=== PATIENT | female | born 1970 | race Hispanic/Latino ===

== ENCOUNTER 2017-12-06 16:55 | Emergency (ER) | payer MEDICAID ==
[2017-12-06] MEDS ORDERED: HYDROXYZINE HCL 25 MG TABLET ONE (17:09)
[2017-12-06 17:24] LABS: BASOPHILS % (AUTO) 2.1 % (0.0-5.0); EOSINOPHILS % (AUTO) 0.3 % (0.0-8.0); HEMATOCRIT 39.3 % (36-48); LYMPHOCYTES % (AUTO) 20.8 % (21.0-51.0); MEAN CORPUSCULAR HEMOGLOBIN 32.3 pg (27.0-33.0); MEAN CORPUSCULAR HGB CONC 34.4 g/dL (32.0-36.0); MONOCYTES % (AUTO) 7.7 % (3.0-13.0); NEUTROPHILS % (AUTO) 69.1 % (40.0-77.0); NUCLEATED RED BLOOD CELLS 0.1 % (0.0-0.19); PLATELET COUNT (AUTO) 181 K/uL (130-400); RED BLOOD CELL COUNT(AUTO) 4.18 MIL/uL (4.00-5.50); RED CELL DISTRIBUTION WIDTH 13.6 % (11.0-15.5); WHITE BLOOD COUNT (AUTO) 6.8 K/uL (4.8-10.8)
[2017-12-06 17:39] LABS: CREATININE 0.8 mg/dL (0.5-1.5); POTASSIUM 4.3 mmol/L (3.5-5.1)
[2017-12-06 17:43] LABS: ALBUMIN 2.7 g/dL (3.5-5.0); BILIRUBIN,TOTAL 0.4 mg/dL (0.2-1.0); TOTAL PROTEIN, SERUM 6.7 g/dL (6.0-8.3)
[2017-12-06 17:54] LABS: APPEARANCE,URINE CLEAR (CLEAR); BILIRUBIN,URINE NEGATIVE (NEGATIVE); COLOR,URINE YELLOW (YELLOW); GLUCOSE, URINE (UA) NEGATIVE (NEGATIVE); KETONES,URINE NEGATIVE (NEGATIVE); LEUKOCYTE ESTERASE ,URINE NEGATIVE (NEGATIVE); NITRATE,URINE NEGATIVE (NEGATIVE); OCCULT BLOOD,URINE NEGATIVE (NEGATIVE); PROTEIN,URINE 30 (NEGATIVE)
[2017-12-06 18:01] LABS: AMPHET/METH SCREEN,URINE NEGATIVE (NEGATIVE); BARBITURATE SCREEN, URINE NEGATIVE (NEGATIVE); BENZODIAZEPINES SCREEN,URINE NEGATIVE (NEGATIVE); CANNABINOID SCREEN,URINE NEGATIVE (NEGATIVE); COCAINE SCREEN,URINE NEGATIVE (NEGATIVE); OPIATE SCREEN,URINE NEGATIVE (NEGATIVE); PHENCYCLIDINE SCREEN,URINE NEGATIVE (NEGATIVE)
[2017-12-06 18:06] LABS: HCG,QUAL RESULT NEGATIVE (NEGATIVE)
[2017-12-06 18:22] LABS: BACTERIA,URINE Rare /HPF (None Seen); MUCUS,URINE Few LPF (None Seen); RBC,URINE 0-1 /HPF (0-1); SQUAMOUS EPITHELIAL CELL,UR Few /HPF (0-2); WBC,URINE 0-1 /HPF (0-1)
[2017-12-06 18:24] LABS: HYALINE CASTS, URINE 0-1 /LPF (0-1 /LPF)
== END 2017-12-06 19:05 | disposition home or self-care (01) ==
LOC: EDH 16:55
DX: F41.1 Generalized anxiety disorder (principal); L29.9 Pruritus, unspecified; R51 Headache; R10.9 Unspecified abdominal pain; E11.22 Type 2 diabetes mellitus with diabetic chronic kidney disease; N18.6 End stage renal disease; K74.60 Unspecified cirrhosis of liver; Z72.0 Tobacco use
CPT/HCPCS: 36415; 80053; 80305; 81001; 81025; 83690; 85025

== ENCOUNTER 2018-07-08 19:17 | Emergency (ER) | payer MEDICAID ==
[~2018-07-08 19:17] MED LIST: BUPR150T8 PO; DOXY-252 PO; DULO30CA51 PO; ESOM40CA PO; HYDR-3421 PO; IPRA3AMP24 IH; LACT10SO9 PO; LEVO125 PO; LEVO500T2 PO; MECL-111 PO; PREG100C PO
[2018-07-08] MEDS ORDERED: KETOROLAC TROMETHAMINE 30MG/ML ONE (22:12)
[2018-07-08] MEDS ORDERED: ONDANSETRON ODT 4 MG TAB ONE (22:16)
== END 2018-07-08 22:59 | disposition home or self-care (01) ==
LOC: EDH 19:17
DX: H10.9 Unspecified conjunctivitis (principal); L03.213 Periorbital cellulitis; M54.9 Dorsalgia, unspecified; J44.9 Chronic obstructive pulmonary disease, unspecified; E11.22 Type 2 diabetes mellitus with diabetic chronic kidney disease; N18.6 End stage renal disease; E07.9 Disorder of thyroid, unspecified; K74.60 Unspecified cirrhosis of liver; Z72.0 Tobacco use; W18.39XA Other fall on same level, initial encounter; Y93.89 Activity, other specified; Y92.89 Other specified places as the place of occurrence of the external cause; Y99.8 Other external cause status
CPT/HCPCS: 72100; 96372; 99284; J1885

== ENCOUNTER 2018-07-30 19:36 | Emergency (ER) | payer MEDICAID ==
[2018-07-30] MEDS ORDERED: DiphenhydrAMINE HCL 50 MG/ML VIAL ONE (20:46)
[2018-07-30] MEDS ORDERED: KETOROLAC TROMETHAMINE 30MG/ML ONE (20:46)
[2018-07-30] MEDS ORDERED: METOCLOPRAMIDE 10 MG/2 ML VIAL ONE (20:46)
[2018-07-30] MEDS ORDERED: SODIUM CHLORIDE 0.9% 1000ML 1,000 ML IV ONE (20:46)
[2018-07-30 21:10] LABS: BASOPHILS % (AUTO) 0.1 % (0.0-5.0); EOSINOPHILS % (AUTO) 2.9 % (0.0-8.0); HEMATOCRIT 36.5 % (36-48); LYMPHOCYTES % (AUTO) 35.9 % (21.0-51.0); MEAN CORPUSCULAR HEMOGLOBIN 31.5 pg (27.0-33.0); MEAN CORPUSCULAR HGB CONC 34.5 g/dL (32.0-36.0); MEAN CORPUSCULAR VOLUME 91.3 fL (79-99); MONOCYTES % (AUTO) 7.8 % (3.0-13.0); NEUTROPHILS % (AUTO) 53.3 % (40.0-77.0); PLATELET COUNT (AUTO) 252 K/uL (130-400); RED CELL DISTRIBUTION WIDTH 13.1 % (11.0-15.5); WHITE BLOOD COUNT (AUTO) 5.8 K/uL (4.8-10.8)
[2018-07-30 21:19] LABS: POTASSIUM 3.7 mmol/L (3.5-5.1)
[2018-07-30 21:24] LABS: ALBUMIN 3.1 g/dL (3.5-5.0); BILIRUBIN,TOTAL 0.4 mg/dL (0.2-1.0); TOTAL PROTEIN, SERUM 7.3 g/dL (6.0-8.3)
== END 2018-07-30 21:47 | disposition home or self-care (01) ==
LOC: EDH 19:36
DX: M62.830 Muscle spasm of back (principal); M54.5 Low back pain; J44.9 Chronic obstructive pulmonary disease, unspecified; K74.60 Unspecified cirrhosis of liver; F31.9 Bipolar disorder, unspecified; E11.22 Type 2 diabetes mellitus with diabetic chronic kidney disease; N18.6 End stage renal disease; E07.9 Disorder of thyroid, unspecified; Z88.5 Allergy status to narcotic agent; Z72.0 Tobacco use
CPT/HCPCS: 36415; 80053; 85025; 96361; 96374; 96375; 99284; J1200; J1885; J2765; J7030

== ENCOUNTER 2019-04-03 15:08 | Emergency (ER) | payer MEDICAID ==
[~2019-04-03 15:08] MED LIST changes: -DULO30CA51 PO; +DULO30CA52 PO
[2019-04-03] MEDS ORDERED: IBUPROFEN 600 MG TABLET ONE (16:40)
== END 2019-04-03 17:08 | disposition home or self-care (01) ==
LOC: EDH 15:08
DX: S53.491A Other sprain of right elbow, initial encounter (principal); E11.22 Type 2 diabetes mellitus with diabetic chronic kidney disease; N18.6 End stage renal disease; M19.90 Unspecified osteoarthritis, unspecified site; F31.9 Bipolar disorder, unspecified; J44.9 Chronic obstructive pulmonary disease, unspecified; F20.9 Schizophrenia, unspecified; E07.9 Disorder of thyroid, unspecified; Z72.0 Tobacco use; Z88.5 Allergy status to narcotic agent; W18.39XA Other fall on same level, initial encounter; Y93.01 Activity, walking, marching and hiking; Y92.89 Other specified places as the place of occurrence of the external cause; Y99.8 Other external cause status
CPT/HCPCS: 73080

== ENCOUNTER 2019-10-27 13:06 | Emergency (ER) | payer MEDICAID ==
[~2019-10-27 13:06] MED LIST changes: -MECL-111 PO; +MECL-160 PO
[2019-10-27 13:39] LABS: BASOPHILS % (AUTO) 0.4 % (0.0-5.0); EOSINOPHILS % (AUTO) 2.8 % (0.0-8.0); HEMATOCRIT 39.1 % (36-48); LYMPHOCYTES % (AUTO) 28.5 % (21.0-51.0); MEAN CORPUSCULAR HEMOGLOBIN 30.2 pg (27.0-33.0); MEAN CORPUSCULAR HGB CONC 33.2 g/dL (32.0-36.0); MEAN CORPUSCULAR VOLUME 90.9 fL (79-99); MONOCYTES % (AUTO) 8.2 % (3.0-13.0); NEUTROPHILS % (AUTO) 59.8 % (40.0-77.0); PLATELET COUNT (AUTO) 221 K/uL (130-400); RED CELL DISTRIBUTION WIDTH 12.7 % (11.0-15.5); WHITE BLOOD COUNT (AUTO) 6.9 K/uL (4.8-10.8)
[2019-10-27 13:46] LABS: CREATININE 0.8 mg/dL (0.5-1.5); POTASSIUM 3.8 mmol/L (3.5-5.1)
[2019-10-27] MEDS ORDERED: LORAZEPAM 2 MG/ML 1 ML VIAL ONE (13:49)
== END 2019-10-27 15:50 | disposition home or self-care (01) ==
LOC: EDH 13:06
DX: F41.1 Generalized anxiety disorder (principal); R07.89 Other chest pain; F31.9 Bipolar disorder, unspecified; J44.9 Chronic obstructive pulmonary disease, unspecified; E11.22 Type 2 diabetes mellitus with diabetic chronic kidney disease; N18.6 End stage renal disease; F20.9 Schizophrenia, unspecified; E07.9 Disorder of thyroid, unspecified; K74.60 Unspecified cirrhosis of liver; Z88.5 Allergy status to narcotic agent; Z72.0 Tobacco use
CPT/HCPCS: 36415; 71045; 80048; 84484; 85025; 93005; 96372; 99285; J2060

== ENCOUNTER 2020-03-23 13:58 | Emergency (ER) | payer MEDICAID ==
[2020-03-23] MEDS ORDERED: ONDANSETRON HCL 4 MG/2 ML VIAL ONE (14:53)
[2020-03-23] MEDS ORDERED: FAMOTIDINE/PF 20 MG/2 ML VIAL IV ONE (15:28)
[2020-03-23] MEDS ORDERED: KETOROLAC TROMETHAMINE 15MG/ML ONE (17:39)
== END 2020-03-23 18:05 | disposition home or self-care (01) ==
LOC: EDH 13:58
DX: R07.89 Other chest pain (principal); R11.2 Nausea with vomiting, unspecified; N39.0 Urinary tract infection, site not specified; R10.30 Lower abdominal pain, unspecified; M19.90 Unspecified osteoarthritis, unspecified site; F31.9 Bipolar disorder, unspecified; J44.9 Chronic obstructive pulmonary disease, unspecified; E11.9 Type 2 diabetes mellitus without complications; E11.22 Type 2 diabetes mellitus with diabetic chronic kidney disease; N18.6 End stage renal disease; Z72.0 Tobacco use
CPT/HCPCS: 36415; 71045; 80053; 81001; 81025; 82550; 83690; 84484 ×2; 85025; 85610; 85730; 87088; 93005 ×2; 96374; 96375; 99285; J1885; J2405; J3490

== ENCOUNTER 2021-09-09 23:09 | Emergency (ER) | payer MEDICAID ==
[~2021-09-09] VITALS: Ht 154.9 cm; Wt 71.2 kg
[2021-09-09] MEDS ORDERED: 0.9%NACL 1000ML 1,000 ML IV ONE (23:30)
[2021-09-09] MEDS ORDERED: ONDANSETRON 4MG INJ IVP ONE (23:30)
[2021-09-09 23:39] LABS: BASOPHILS % (AUTO) 0.2 % (0.0-5.0); EOSINOPHILS % (AUTO) 0.9 % (0.0-8.0); HEMATOCRIT 41.6 % (36-48); LYMPHOCYTES % (AUTO) 16.8 % (21.0-51.0); MEAN CORPUSCULAR HEMOGLOBIN 31.6 pg (27.0-33.0); MEAN CORPUSCULAR HGB CONC 34.1 g/dL (32.0-36.0); MEAN CORPUSCULAR VOLUME 92.4 fL (79-99); MONOCYTES % (AUTO) 7.8 % (3.0-13.0); NEUTROPHILS % (AUTO) 73.8 % (40.0-77.0); PLATELET COUNT (AUTO) 305 K/uL (130-400); RED CELL DISTRIBUTION WIDTH 13.2 % (11.0-15.5); WHITE BLOOD COUNT (AUTO) 13.2 K/uL (4.8-10.8)
[2021-09-09 23:46] LABS: BILIRUBIN,URINE Negative (NEGATIVE); COLOR,URINE Dark Yellow (YELLOW); GLUCOSE, URINE (UA) Negative (NEGATIVE); KETONES,URINE 40 mg/dL (NEGATIVE); LEUKOCYTE ESTERASE ,URINE Large (NEGATIVE); NITRATE,URINE Negative (NEGATIVE); OCCULT BLOOD,URINE Negative (NEGATIVE); PROTEIN,URINE POS 2+ mg/dL (NEGATIVE)
[2021-09-09 23:47] LABS: APPEARANCE,URINE CLOUDY (CLEAR)
[2021-09-09 23:48] LABS: CARBON DIOXIDE 27 mmol/L (21-32); CHLORIDE 99 mmol/L (101-111); CREATININE 1.2 mg/dL (0.5-1.5); GLOMERULAR FILTR. RATE CALC 51 mL/min (>60); GLUCOSE,RANDOM 99 mg/dL (70-105); POTASSIUM 3.6 mmol/L (3.5-5.1); SODIUM SERUM 136 mmol/L (136-145); UREA NITROGEN, BLOOD 13 mg/dL (7-18)
[2021-09-09 23:52] LABS: ALANINE AMINOTRANSFERASE 29 U/L (12-78); ALCOHOL, BLOOD 4 mg/dL (0-10); ASPARTATE AMINOTRANSFERASE 26 U/L (10-37); BILIRUBIN,TOTAL 1.1 mg/dL (0.2-1.0); TOTAL PROTEIN, SERUM 9.1 g/dL (6.0-8.3)
[2021-09-09 23:53] LABS: AMPHET/METH SCREEN,URINE NEGATIVE (NEGATIVE); BARBITURATE SCREEN, URINE NEGATIVE (NEGATIVE); BENZODIAZEPINES SCREEN,URINE NEGATIVE (NEGATIVE); CANNABINOID SCREEN,URINE NEGATIVE (NEGATIVE); COCAINE SCREEN,URINE POSITIVE (NEGATIVE); OPIATE SCREEN,URINE NEGATIVE (NEGATIVE); PHENCYCLIDINE SCREEN,URINE NEGATIVE (NEGATIVE)
[2021-09-09 23:57] LABS: BACTERIA,URINE Few /HPF (None Seen); RBC,URINE 0-1 /HPF (0-1); WBC,URINE 26-50 /HPF (0-1)
[2021-09-10] MEDS ORDERED: CEFTRIAXONE 1G VIAL IVP ONE
[2021-09-10 00:04] LABS: LIPASE < 50 U/L (114-286)
[2021-09-10 00:35] VITALS: BP 132/74
[2021-09-10] MEDS ORDERED: HYDR25CA PO (01:12)
[2021-09-10] MEDS ORDERED: CEPH500B PO (01:12)
[2021-09-10] MEDS ORDERED: LORAZEPAM 2 MG/ML 1 ML VIAL ONE (01:20)
[2021-09-10] MEDS ORDERED: LORAZEPAM 2 MG/ML 1 ML VIAL IVP ONE (01:30)
== END 2021-09-10 01:29 | disposition home or self-care (01) ==
LOC: EDH 23:09
DX: N39.0 Urinary tract infection, site not specified (principal); F41.9 Anxiety disorder, unspecified; F14.10 Cocaine abuse, uncomplicated; F10.10 Alcohol abuse, uncomplicated; Z20.822 Contact with and (suspected) exposure to COVID-19; I10 Essential (primary) hypertension; J44.9 Chronic obstructive pulmonary disease, unspecified; Z79.899 Other long term (current) drug therapy
CPT/HCPCS: 36415; 80053; 80305; 81001; 83690; 83735; 84484; 85025; 87077; 87088; 87186; 96361; 96374; 96375; 99284; J0696; J2060; J2405; J7030

== ENCOUNTER 2022-03-12 11:56 | Emergency (ER) | payer MEDICAID ==
[~2022-03-12] VITALS: Ht 154.9 cm; Wt 74.8 kg
[~2022-03-12 11:56] MED LIST changes: +BUPR-113 PO; -BUPR150T8 PO; +CEPH500B PO; +HYDR25CA PO
[2022-03-12 12:20] LABS: BASOPHILS % (AUTO) 0.2 % (0.0-5.0); EOSINOPHILS % (AUTO) 0.6 % (0.0-8.0); HEMATOCRIT 39.3 % (36-48); LYMPHOCYTES % (AUTO) 9.7 % (21.0-51.0); MEAN CORPUSCULAR HEMOGLOBIN 31.3 pg (27.0-33.0); MEAN CORPUSCULAR HGB CONC 33.6 g/dL (32.0-36.0); MEAN CORPUSCULAR VOLUME 93.1 fL (79-99); MONOCYTES % (AUTO) 6.8 % (3.0-13.0); NEUTROPHILS % (AUTO) 82.2 % (40.0-77.0); PLATELET COUNT (AUTO) 178 K/uL (130-400); RED BLOOD CELL COUNT(AUTO) 4.22 MIL/uL (4.00-5.50); RED CELL DISTRIBUTION WIDTH 13.2 % (11.0-15.5); WHITE BLOOD COUNT (AUTO) 12.7 K/uL (4.8-10.8)
[2022-03-12] MEDS ORDERED: BUDESONIDE 0.25 MG/2 ML INH IH ONE (12:29)
[2022-03-12] MEDS ORDERED: CEFTRIAXONE 1G VIAL IVP ONE (12:30)
[2022-03-12] MEDS ORDERED: ALBUTEROL 0.083% 2.5 MG/3 ML INH IH ONE ×2 (12:30)
[2022-03-12] MEDS ORDERED: IPRATROPIUM/ALBUTEROL SULFATE 3 ML SOLUTION IH ONE (12:30)
[2022-03-12] MEDS ORDERED: PROMETHAZINE HCL 25 MG/ML 1ML AMPULE IM ONE (12:30)
[2022-03-12] MEDS ORDERED: 0.9%NACL 1000ML 1,000 ML IV SCH (12:30)
[2022-03-12] MEDS ORDERED: SOLU-MEDROL 125MG VIAL IVP ONE (12:30)
[2022-03-12] MEDS ORDERED: ACETAMINOPHEN WITH CODEINE 1 TAB TAB PO ONE (12:30)
[2022-03-12] MEDS ORDERED: AZITHROMYCIN 250 MG TABLET PO ONE (12:30)
[2022-03-12 12:33] LABS: INR 0.95 (0.85-1.15); PROTHROMBIN TIME 10.4 SEC (9.6-11.6)
[2022-03-12 12:34] LABS: CREATININE 0.9 mg/dL (0.5-1.5); PARTIAL THROMBOPLASTIN TIME 24.9 SEC (26.3-35.5)
[2022-03-12 12:40] LABS: ALBUMIN 3.1 g/dL (3.5-5.0); BILIRUBIN,TOTAL 0.5 mg/dL (0.2-1.0); TOTAL PROTEIN, SERUM 7.8 g/dL (6.0-8.3)
[2022-03-12] MEDS ORDERED: AMOX1TAB16 PO (13:50)
[2022-03-12] MEDS ORDERED: PRED20TA3 PO (13:50)
[2022-03-12] MEDS ORDERED: D-ME1POW16 PO (13:50)
[2022-03-12 14:06] VITALS: BP 104/60
[2022-03-12 14:06] LABS: APPEARANCE,URINE CLEAR (CLEAR); BILIRUBIN,URINE NEGATIVE (NEGATIVE); COLOR,URINE YELLOW (YELLOW); GLUCOSE, URINE (UA) NEGATIVE (NEGATIVE); KETONES,URINE NEGATIVE (NEGATIVE); LEUKOCYTE ESTERASE ,URINE NEGATIVE (NEGATIVE); NITRATE,URINE NEGATIVE (NEGATIVE); OCCULT BLOOD,URINE NEGATIVE (NEGATIVE); PH,URINE 7.5 (5.0-8.0); PROTEIN,URINE NEGATIVE (NEGATIVE)
[2022-03-12] MEDS ORDERED: BUDESONIDE 0.5 MG/2 ML INH IH SCH (18:00)
== END 2022-03-12 15:29 | disposition home or self-care (01) ==
LOC: EDH 11:56
DX: J40 Bronchitis, not specified as acute or chronic (principal); E86.0 Dehydration; R50.9 Fever, unspecified; I10 Essential (primary) hypertension; F17.200 Nicotine dependence, unspecified, uncomplicated; Z20.822 Contact with and (suspected) exposure to COVID-19; F41.9 Anxiety disorder, unspecified; M19.90 Unspecified osteoarthritis, unspecified site; K21.9 Gastro-esophageal reflux disease without esophagitis; E05.90 Thyrotoxicosis, unspecified without thyrotoxic crisis or storm; Z79.899 Other long term (current) drug therapy
CPT/HCPCS: 36415; 71045; 80053; 81003; 82550; 83605; 84484; 85025; 85610; 85730; 86140; 87040 ×2; 87088; 87635; 87804 ×2; 94640; 96361; 96372; 96374; 96375; 99284; C9803; J0696; J2550; J2930; J7030

== ENCOUNTER 2022-06-06 00:56 | Emergency (ER) | payer MEDICAID ==
[~2022-06-06] VITALS: Ht 154.9 cm; Wt 72.6 kg
[~2022-06-06 00:56] MED LIST changes: +AMOX1TAB16 PO; +D-ME1POW16 PO; +PRED20TA3 PO
[2022-06-06] MEDS ORDERED: ACETAMINOPHEN 325 MG TAB ONE (01:39)
[2022-06-06] MEDS ORDERED: ACETAMINOPHEN 325 MG TAB PO ONE (02:00)
[2022-06-06] MEDS ORDERED: IBUP-1493 PO (02:43)
[2022-06-06 03:06] VITALS: BP 132/76
== END 2022-06-06 03:07 | disposition home or self-care (01) ==
LOC: EDH 00:56
DX: M79.672 Pain in left foot (principal); Z79.52 Long term (current) use of systemic steroids; Z79.899 Other long term (current) drug therapy; W20.8XXA Other cause of strike by thrown, projected or falling object, initial encounter; Y93.89 Activity, other specified; Y92.090 Kitchen in other non-institutional residence as the place of occurrence of the external cause; Y99.8 Other external cause status
CPT/HCPCS: 73630

== ENCOUNTER 2022-09-23 23:38 | Emergency (ER) | payer MEDICAID ==
[~2022-09-23 23:38] MED LIST changes: +IBUP-1493 PO
[2022-09-23] MEDS ORDERED: SOLU-MEDROL 125MG VIAL IVP STA (23:48)
[2022-09-23] MEDS ORDERED: ONDANSETRON 4MG INJ ONE (23:56)
[2022-09-24] MEDS ORDERED: IPRATROPIUM/ALBUTEROL SULFATE 3 ML SOLUTION IH ONE
[2022-09-24 00:30] LABS: BASOPHILS % (AUTO) 0.8 % (0.0-5.0); EOSINOPHILS % (AUTO) 2.5 % (0.0-8.0); HEMATOCRIT 39.1 % (36-48); LYMPHOCYTES % (AUTO) 27.9 % (21.0-51.0); MEAN CORPUSCULAR HEMOGLOBIN 31.9 pg (27.0-33.0); MEAN CORPUSCULAR HGB CONC 33.2 g/dL (32.0-36.0); MEAN CORPUSCULAR VOLUME 95.8 fL (79-99); MONOCYTES % (AUTO) 15.5 % (3.0-13.0); NEUTROPHILS % (AUTO) 52.5 % (40.0-77.0); PLATELET COUNT (AUTO) 191 K/uL (130-400); RED BLOOD CELL COUNT(AUTO) 4.08 MIL/uL (4.00-5.50); RED CELL DISTRIBUTION WIDTH 13.2 % (11.0-15.5); WHITE BLOOD COUNT (AUTO) 5.3 K/uL (4.8-10.8)
[2022-09-24 00:36] LABS: CREATININE 0.8 mg/dL (0.5-1.5); POTASSIUM 3.9 mmol/L (3.5-5.1)
[2022-09-24 00:44] LABS: ALBUMIN 3.2 g/dL (3.5-5.0); TOTAL PROTEIN, SERUM 7.7 g/dL (6.0-8.3)
[2022-09-24] MEDS ORDERED: PROCHLORPERAZINE 10MG/2ML INJ IV ONE (01:00)
[2022-09-24] MEDS ORDERED: ALBU90AE2 IH (05:16)
[2022-09-24] MEDS ORDERED: METH4TAB3 PO (05:19)
[2022-09-24 05:23] VITALS: BP 119/63
[2022-09-25] MEDS ORDERED: FAMO20TA8 PO (17:37)
== END 2022-09-24 05:49 | disposition home or self-care (01) ==
LOC: EDH 23:38
DX: J45.909 Unspecified asthma, uncomplicated (principal); G43.909 Migraine, unspecified, not intractable, without status migrainosus; Z79.1 Long term (current) use of non-steroidal anti-inflammatories (NSAID); Z79.899 Other long term (current) drug therapy; Z79.52 Long term (current) use of systemic steroids; Z79.2 Long term (current) use of antibiotics; Z20.822 Contact with and (suspected) exposure to COVID-19
CPT/HCPCS: 99285; 71045; 87635; 84484; 80053; 85025; 87804 ×2; 36415; 93005; 96374; 96375; 94640; C9803; J2930; J2405; J0780

== ENCOUNTER 2023-03-31 20:06 | Emergency (ER) | payer MEDICAID ==
[~2023-03-31 20:06] MED LIST changes: +ALBU90AE2 IH; +FAMO20TA8 PO; +METH4TAB3 PO
[2023-03-31] MEDS ORDERED: ONDANSETRON 4MG INJ IVP ONE (23:00)
[2023-03-31] MEDS ORDERED: MORPHINE 4 MG SYG IVP ONE (23:00)
[2023-03-31] MEDS ORDERED: DiphenhydrAMINE HCL 50 MG/ML VIAL ONE (23:10)
[2023-03-31] MEDS ORDERED: DiphenhydrAMINE HCL 50 MG/ML VIAL IV STA (23:10)
[2023-03-31] MEDS ORDERED: SOLU-MEDROL 125MG VIAL ONE (23:11)
[2023-03-31] MEDS ORDERED: SOLU-MEDROL 125MG VIAL IVP ONE (23:30)
[2023-04-01] MEDS ORDERED: IBUP-2070 PO (01:55)
[2023-04-01 02:14] VITALS: BP 115/68
== END 2023-04-01 02:20 | disposition home or self-care (01) ==
LOC: EDH 20:06
DX: S22.31XA Fracture of one rib, right side, initial encounter for closed fracture (principal); E03.9 Hypothyroidism, unspecified; E11.9 Type 2 diabetes mellitus without complications; E78.00 Pure hypercholesterolemia, unspecified; F20.9 Schizophrenia, unspecified; I10 Essential (primary) hypertension; J44.9 Chronic obstructive pulmonary disease, unspecified; M19.90 Unspecified osteoarthritis, unspecified site; Z79.52 Long term (current) use of systemic steroids; Z79.899 Other long term (current) drug therapy; Z88.5 Allergy status to narcotic agent; W19.XXXA Unspecified fall, initial encounter; Y93.89 Activity, other specified; Y92.89 Other specified places as the place of occurrence of the external cause; Y99.8 Other external cause status
CPT/HCPCS: 99284; 96374; 96375; 71045; 71101; 93005; J1200; J2930; J2405; J2270

== ENCOUNTER 2023-06-06 00:49 | Emergency (ER) | payer MEDICAID ==
[~2023-06-06] VITALS: Ht 154.9 cm; Wt 81.6 kg
[~2023-06-06 00:49] MED LIST changes: +IBUP-2070 PO; -MECL-160 PO; +MECL-302 PO
[2023-06-06 00:56] VITALS: BP 121/67; PULSE 71; RESP 18; O2SAT 98
[2023-06-06] MEDS ORDERED: LIDOCAINE HCL 1% 20 ML VIAL ONE (00:56)
[2023-06-06] MEDS ORDERED: TETANUS/DIPHTHERIA TOXOID [ADULT] 0.5 ML VIAL IM ONE (01:00)
[2023-06-06] MEDS ORDERED: LIDOCAINE HCL 1% 20 ML VIAL INJ SCH (01:00)
[2023-06-06] MEDS ORDERED: IBUP-1493 PO (01:36)
[2023-06-06] MEDS ORDERED: CEPH500B PO (01:36)
== END 2023-06-06 01:50 | disposition home or self-care (01) ==
LOC: EDH 00:49
DX: S71.111A Laceration without foreign body, right thigh, initial encounter (principal)
CPT/HCPCS: 12002; 90471; 90714

== ENCOUNTER 2023-06-26 10:58 | Emergency (ER) | payer MEDICAID ==
[~2023-06-26] VITALS: Ht 154.9 cm; Wt 77.1 kg
[2023-06-26 11:29] VITALS: BP 125/70; PULSE 75; RESP 17; O2SAT 98
[2023-06-26] MEDS ORDERED: ASPIRIN 325MG TAB PO ONE (11:30)
[2023-06-26 11:31] LABS: BASOPHILS # (AUTO) 0.02 K/uL (0.00-0.20); BASOPHILS % (AUTO) 0.3 % (0.0-5.0); EOSINOPHILS # (AUTO) 0.11 K/uL (0.00-0.70); EOSINOPHILS % (AUTO) 1.8 % (0.0-8.0); HEMATOCRIT 39.7 % (36-48); IMMATURE GRANULOCYTE ABSOLUTE 0.05 K/uL (0-1); LYMPHOCYTES # (AUTO) 1.7 K/uL (1.0-4.8); LYMPHOCYTES % (AUTO) 27.7 % (21.0-51.0); MEAN CORPUSCULAR HEMOGLOBIN 31.4 pg (27.0-33.0); MEAN CORPUSCULAR VOLUME 95.2 fL (79-99); MONOCYTES # (AUTO) 0.4 K/uL (0.1-1.0); MONOCYTES % (AUTO) 5.8 % (3.0-13.0); NEUTROPHILS # (AUTO) 3.8 K/uL (1.8-7.7); NEUTROPHILS % (AUTO) 63.6 % (40.0-77.0); PLATELET COUNT (AUTO) 256 K/uL (130-400); RED BLOOD CELL COUNT(AUTO) 4.17 MIL/uL (4.00-5.50); RED CELL DISTRIBUTION WIDTH 13.9 % (11.0-15.5)
[2023-06-26 11:40] LABS: CREATININE 0.8 mg/dL (0.5-1.5); POTASSIUM 3.7 mmol/L (3.5-5.1)
[2023-06-26 11:45] LABS: ALBUMIN 3.3 g/dL (3.5-5.0); BILIRUBIN,TOTAL 0.4 mg/dL (0.2-1.0); TOTAL PROTEIN, SERUM 7.4 g/dL (6.0-8.3)
[2023-06-26 11:45] LABS: APPEARANCE,URINE CLEAR (CLEAR); BILIRUBIN,URINE NEGATIVE (NEGATIVE); COLOR,URINE LIGHT-YELLOW (YELLOW); GLUCOSE, URINE (UA) NEGATIVE (NEGATIVE); KETONES,URINE NEGATIVE (NEGATIVE); LEUKOCYTE ESTERASE ,URINE NEGATIVE Leu/uL (NEGATIVE); NITRATE,URINE NEGATIVE (NEGATIVE); OCCULT BLOOD,URINE NEGATIVE (NEGATIVE); PROTEIN,URINE NEGATIVE (NEGATIVE); UROBILINOGEN,URINE 0.2 mg/dL (0.2-1.0)
[2023-06-26 11:46] LABS: ADD UA MICROSCOPIC NO
[2023-06-26 12:09] LABS: B-TYPE NATRIURETIC PEPTIDE 17 pg/mL (0-100)
== END 2023-06-26 14:42 | disposition home or self-care (01) ==
LOC: EDH 10:58
DX: R07.89 Other chest pain (principal); M19.90 Unspecified osteoarthritis, unspecified site; E78.00 Pure hypercholesterolemia, unspecified; E03.9 Hypothyroidism, unspecified; F20.9 Schizophrenia, unspecified; I10 Essential (primary) hypertension; J44.9 Chronic obstructive pulmonary disease, unspecified; Z79.1 Long term (current) use of non-steroidal anti-inflammatories (NSAID); Z79.52 Long term (current) use of systemic steroids; Z79.899 Other long term (current) drug therapy; Z88.5 Allergy status to narcotic agent
CPT/HCPCS: 36415; 71045; 80053; 81003; 83880; 84484; 85025; 93005

== ENCOUNTER 2023-12-19 11:19 | Emergency (ER) | payer MEDICAID ==
[~2023-12-19] VITALS: Ht 154.9 cm; Wt 81.6 kg
[~2023-12-19 11:19] MED LIST changes: +MECL-160 PO; -MECL-302 PO
[2023-12-19 11:58] LABS: BASOPHILS # (AUTO) 0.02 K/uL (0.00-0.20); BASOPHILS % (AUTO) 0.2 % (0.0-5.0); EOSINOPHILS % (AUTO) 1.1 % (0.0-8.0); IMMATURE GRANULOCYTE ABSOLUTE 0.02 K/uL (0-1); LYMPHOCYTES # (AUTO) 1.2 K/uL (1.0-4.8); MEAN CORPUSCULAR HEMOGLOBIN 30.4 pg (27.0-33.0); MEAN CORPUSCULAR HGB CONC 32.8 g/dL (32.0-36.0); MEAN CORPUSCULAR VOLUME 92.8 fL (79-99); MONOCYTES # (AUTO) 0.5 K/uL (0.1-1.0); MONOCYTES % (AUTO) 5.4 % (3.0-13.0); NEUTROPHILS # (AUTO) 7.2 K/uL (1.8-7.7); NEUTROPHILS % (AUTO) 80.1 % (40.0-77.0); PLATELET COUNT (AUTO) 197 K/uL (130-400); RED BLOOD CELL COUNT(AUTO) 4.31 MIL/uL (4.00-5.50); RED CELL DISTRIBUTION WIDTH 13.8 % (11.0-15.5); WHITE BLOOD COUNT (AUTO) 9.1 K/uL (4.8-10.8)
[2023-12-19 12:09] LABS: CREATININE 0.8 mg/dL (0.5-1.0); POTASSIUM 3.5 mmol/L (3.5-5.1)
[2023-12-19 12:10] LABS: INR <= 0.93 (0.85-1.15); PROTHROMBIN TIME 10.9 SEC (9.6-11.6)
[2023-12-19 12:11] LABS: APPEARANCE,URINE CLEAR (CLEAR); BILIRUBIN,URINE NEGATIVE (NEGATIVE); COLOR,URINE YELLOW (YELLOW); GLUCOSE, URINE (UA) NEGATIVE (NEGATIVE); KETONES,URINE NEGATIVE (NEGATIVE); LEUKOCYTE ESTERASE ,URINE NEGATIVE Leu/uL (NEGATIVE); NITRATE,URINE NEGATIVE (NEGATIVE); OCCULT BLOOD,URINE NEGATIVE (NEGATIVE); PROTEIN,URINE 20 mg/dL (NEGATIVE)
[2023-12-19 12:14] LABS: ALBUMIN 3.1 g/dL (3.5-5.0); BILIRUBIN,TOTAL 0.7 mg/dL (0.2-1.0); MAGNESIUM 1.9 mg/dL (1.80-2.40); TOTAL PROTEIN, SERUM 7.5 g/dL (6.0-8.3)
[2023-12-19 12:15] LABS: ADD UA MICROSCOPIC YES
[2023-12-19 12:15] LABS: SARS-CoV-2, RNA, NAAT NEGATIVE SARS CoV-2 (NEGATIVE)
[2023-12-19 12:17] LABS: MUCUS,URINE RARE LPF (None Seen); RBC,URINE 0-1 /HPF (0-1); SQUAMOUS EPITHELIAL CELL,UR RARE /HPF (0-2)
[2023-12-19 12:19] LABS: INFLUENZA TYPE A Negative For Type A (NEGATIVE); INFLUENZA TYPE B Negative For Type B (NEGATIVE)
[2023-12-19 12:20] LABS: B-TYPE NATRIURETIC PEPTIDE 21 pg/mL (0-100)
[2023-12-19 12:29] LABS: RAPID GROUP A STREP positive (NEGATIVE)
[2023-12-19] MEDS ORDERED: AMOX1TAB16 PO (12:49)
[2023-12-19] MEDS ORDERED: L AC460C PO (12:49)
[2023-12-19] MEDS ORDERED: GUAI600T50 PO (12:49)
[2023-12-19] MEDS ORDERED: BENZ-39 PO (12:49)
[2023-12-19] MEDS: 0.9%NACL 1000ML 1,000 ML IV ONE (13:15)
[2023-12-19] MEDS: CEFTRIAXONE 1G VIAL IVPB ONE (13:15)
[2023-12-19] MEDS: GUAIFENESIN 600 MG TABLET.ER PO ONE (13:15)
[2023-12-19] MEDS: BENZONATATE 100 MG CAPSULE PO PRN (13:15)
[2023-12-19 14:10] VITALS: BP 121/70; PULSE 87; RESP 16; O2SAT 97
== END 2023-12-19 14:12 | disposition home or self-care (01) ==
LOC: EDH 11:19
DX: A49.1 Streptococcal infection, unspecified site (principal); J40 Bronchitis, not specified as acute or chronic; I10 Essential (primary) hypertension; E11.9 Type 2 diabetes mellitus without complications; E78.00 Pure hypercholesterolemia, unspecified; E03.9 Hypothyroidism, unspecified; F41.9 Anxiety disorder, unspecified; M19.90 Unspecified osteoarthritis, unspecified site; Z20.822 Contact with and (suspected) exposure to COVID-19; Z79.899 Other long term (current) drug therapy; Z98.890 Other specified postprocedural states; Z88.6 Allergy status to analgesic agent
CPT/HCPCS: 99285; 96365; 71045; 87635; 87880; 83735; 84484; 80053; 83880; 85025; 85610; 87804 ×2; 81001; 36415; 93005; J7030; J0696

== ENCOUNTER 2024-01-05 09:46 | Emergency (ER) | payer MEDICAID ==
[~2024-01-05] VITALS: Ht 160 cm; Wt 72.6 kg
[~2024-01-05 09:46] MED LIST changes: +BENZ-39 PO; -CEPH500B PO; -D-ME1POW16 PO; -DOXY-252 PO; +GUAI600T50 PO; -IBUP-1493 PO; -IBUP-2070 PO; +L AC460C PO; -LACT10SO9 PO; -LEVO500T2 PO; -MECL-160 PO; +MECL-302 PO; -METH4TAB3 PO; -PRED20TA3 PO
[2024-01-05] MEDS ORDERED: MELO-106 PO (11:49)
[2024-01-05] MEDS ORDERED: CYCL10TA16 PO (11:49)
[2024-01-05] MEDS: FAMOTIDINE 20MG VIAL IV ONE (12:06)
[2024-01-05] MEDS: METOCLOPRAMIDE 10 MG/2 ML VIAL IVP ONE (12:06)
[2024-01-05] MEDS: DIAZEPAM 5 MG/ML 2 ML SYG IVP ONE (12:07)
[2024-01-05] MEDS: KETOROLAC 30MG VIAL (30MG/ML) IVP ONE (12:07)
[2024-01-05 12:45] VITALS: BP 144/73; PULSE 78; RESP 18; O2SAT 98
== END 2024-01-05 13:09 | disposition home or self-care (01) ==
LOC: EDH 09:46
DX: M48.061 Spinal stenosis, lumbar region without neurogenic claudication (principal); I10 Essential (primary) hypertension; F20.9 Schizophrenia, unspecified; J44.9 Chronic obstructive pulmonary disease, unspecified; M19.90 Unspecified osteoarthritis, unspecified site; Z79.899 Other long term (current) drug therapy; Z88.5 Allergy status to narcotic agent; Z98.890 Other specified postprocedural states
CPT/HCPCS: 99284; 96374; 96375; 72100; J3360; J1885; J2765; S0028; J3490

== ENCOUNTER 2024-10-15 16:09 | Emergency (ER) | payer MEDICAID ==
[~2024-10-15] VITALS: Ht 152.4 cm; Wt 74.8 kg
[~2024-10-15 16:09] MED LIST changes: -ALBU90AE2 IH; +ALBU90AE3 IH; +CYCL10TA16 PO; +MELO-106 PO
[2024-10-15] MEDS: LIDOCAINE HCL 1% 20 ML VIAL INJ STA (16:22)
[2024-10-15] MEDS: OCTYL 2-CYANOACRYLATE 1 EACH TP ONE (19:46)
--- NOTE | 2024-10-15 19:57 | ERN ---
ED Note History of Present Illness Stated Complaint: LACERATION Chief Complaint: Laceration/Avulsion Time Seen by MD: 16:15 Time Seen by Midlevel: 16:20 Dictation: 54-year-old female with a history of schizophrenia, bipolar, anxiety coming in complaining of a laceration to her right hand after picking up a metal sheet. Unknown if she is up to date with her tetanus. Allergies: Coded Allergies: morphine (Unverified Allergy, Severe, 04/01/23) No Known Drug Allergies (Verified Allergy, Unknown, 04/24/18) Home Meds Active Scripts Meloxicam (Meloxicam) 7.5 Mg Tablet, 7.5 MG PO DAILY, #30 TAB 2 Refills Prov:JUDI SCHNEIDER Sr., MD 01/05/24 Cyclobenzaprine HCl (Flexeril) 10 Mg Tab, 10 MG PO TIDP PRN for Muscle Spasm , #30 TAB 2 Refills Prov:JUDI SCHNEIDER Sr., MD 01/05/24 l Acidophil/B Lactis/B Longum (Florajen Digest 15 B Cell Cap) 15 Billion Cell Capsule, 1 EACH PO DAILY for 90 Days, #90 CAP 1 Refill Prov:MAGDI UNDERWOOD 12/19/23 Guaifenesin (Mucinex) 600 Mg Tablet.er, 600 MG PO BID PRN for CONGESTION for 7 Days, #14 TAB Prov:MAGDI UNDERWOOD 12/19/23 Benzonatate (Tessalon Perles) 100 Mg Cap, 100 MG PO TID for cough, #30 CAP 0 Refills Prov:MAGDI UNDERWOOD 12/19/23 Amoxicillin/Potassium Clav (Amox Tr-K Clv 875-125 mg Tab) 875 Mg-125 Mg Tablet, 1 EACH PO BID for 10 Days, #10 TAB 0 Refills Prov:MAGDI UNDERWOOD 12/19/23 Famotidine (Famotidine) 20 Mg Tablet, 20 MG PO BID for 7 Days, #1 TAB Prov:ALHAJI PICKENS 09/25/22 Albuterol Sulfate (Proair Digihaler) 90 Mcg Aer.pw.bas, 90 MCG IH Q4HPRN PRN for reactive airway, #1 INHALER Prov:HERIBERTO TOBAR MD 09/24/22 Hydroxyzine Pamoate (Vistaril) 25 Mg Capsule, 25 MG PO TID for anxiety, #30 CAP Prov:JOCELYNE PALOMINO MD 09/10/21 Reported Medications Ipratropium/Albuterol Sulfate (Iprat-Albut 0.5-3(2.5) mg/3 ml) 3 Ml Ampul.neb, 3 ML IH [id number] PRN for SHORTNESS OF BREATH/WHEEZING 04/30/18 Levothyroxine Sodium (Levothroid/Synthroid) 125 Mcg Tab, 137 MCG PO OADDF, TAB 04/25/18 Duloxetine HCl (Duloxetine HCl) 30 Mg Capsule.dr, 30 MG PO BID, CAP 04/25/18 Meclizine HCl (Meclizine HCl) 25 Mg Tablet, 25 MG PO TID PRN for NAUSEA, TAB 04/25/18 Esomeprazole Magnesium (Nexium) 40 Mg Capsule.dr, 40 MG PO DAILY, CAP 04/25/18 Hydroxyzine HCl (Hydroxyzine HCl) 25 Mg Tablet, 25 MG PO [id number] PRN for ANXIETY, TAB 04/25/18 Pregabalin (Lyrica) 100 Mg Capsule, 100 MG PO TID, CAP 04/25/18 Bupropion HCl (Bupropion HCl Sr) 150 Mg Tablet.er, 150 MG PO BID, TAB 04/25/18 Past Medical History Past Medical History: Asthma, Bipolar, COPD, GERD, Hypothyroid, Migraines, Schizophrenia Additional Past Medical Hx: DJD, CHRONIC BACK PAIN, OSTEOPOROSIS Surgical History: None Surgical History Other: ABDOMINAL , SPINE Family History: Negative Social History: Negative Review of System Dictation Constitutional: Negative for fever,chills, and weight loss Eyes: Negative for injury, pain,redness, and discharge ENT: Negative for injury,pain or swelling Cardiovascular: Negative for chest pain, palpitations, and edema Respiratory: Negative for shortness of breath, cough, and wheezing, Abdomen/GI: Negative for abdominal pain, nausea, vomiting, diarrhea, and constipation Back: Negative for injury and pain : Negative for injury, bleeding and discharge MS/Extremity: Negative for injury and deformity laceration to the right hand Skin: Negative for rash, and discoloration Neuro: Negative for headache, weakness, numbness, tingling, and seizure Psych: Negative for suicide ideation, homicidal ideation, and hallucinations Review of Systems: was completed Initial Vital Sign VS Vital Signs Date Time Temp Pulse Resp B/P (MAP) Pulse Ox O2 Delivery O2 Flow Rate FiO2 10/15/24 16:10 98.2 78 18 117/82 96 Room Air 0 Physical Exam Dictation General: awake, alert, NAD Head/Face: Normocephalic, atraumatic Eyes: PERRL, EOMI, vision at baseline ENT: oral cavity clear, TMs clear, no signs of infection Neck: Trachea midline, supple, no nuchal rigidity Cardiovascular: RRR, normal S1/S2, No MRGs, no JVD Respiratory: CTAB, no respiratory distress, No rales or wheezes Abdomen: Soft, non-tender, non-distended, normal bowel sounds, no guarding or rebound. Skin: Warm, dry, normal turgor, no rash about 2 in laceration to the right base of the thumb no active bleeding. MS/Extremity: Pulses equal, no cyanosis, neurovascular intact, FROM Neuro: COAx4, GCS 15, strength 5/5, CN 2-12 intact, normal cerebellar exam, normal gait, Psych: Normal behavior, mood, and affect normal ED Course ED Course Orders Procedure Category Date Status Time Tetanus,Diphtheria PHA 10/15/24 Complete Tox [Adult] (Diphther 16:30 Lidocaine Hcl 1% 20ml PHA 10/15/24 Complete Vial (Lidocaine Hc 16:22 Ketorolac PHA 10/15/24 Complete Tromethamine 15mg/Ml 19:08 Dermabond (Dermabond) PHA 10/15/24 Complete 19:46 Current Medications Medications (Trade) Dose Ordered Sig/Katlin Route PRN Reason Start Time Stop Time Status Last Admin Dose Admin Ketorolac Tromethamine (toRADol) 15 mg ONCE STAT IM 10/15/24 19:08 10/15/24 19:09 DC Lidocaine HCl (Lidocaine HCl 1% 20ml Vial) 10 ml ONCE STAT INJ 10/15/24 16:22 10/15/24 16:24 DC Octyl Cyanoacrylate (Dermabond) 1 each STK-MED ONCE TP 10/15/24 19:46 10/15/24 19:47 DC Tetanus/ Diphtheria Toxoids Adsorbed (DiphthERIA-teTANUS TOXOID [ADULT]/ DECAVAC) 0.5 ml ONCE ONCE IM 10/15/24 16:30 10/15/24 16:31 DC Vital Signs Date Time Temp Pulse Resp B/P (MAP) Pulse Ox O2 Delivery O2 Flow Rate FiO2 10/15/24 16:10 98.2 78 18 117/82 96 Room Air 0 Medical Decision Making MDM MDM: 54-year-old female with a history of schizophrenia, bipolar, anxiety coming in complaining of a laceration to her right hand after picking up a metal sheet. Unknown if she is up to date with her tetanus. Patient has full range of motion to all fingers. No tendon involvement. See laceration repair note. Discussed with the patient wound care and when to return back to the ER. Patient verbalized understanding, answered all questions. Differential diagnosis: Tendon involvement, superficial laceration, Rationale: Tests considered and ordered secondary to shared decision making include: Previous outside records reviewed: Old ER visits. Risk of complication and/or morbidity or mortality of patient management: None Medications-Per medication reconciliation Need for hospitalization: Patient does not meet criteria for hospitalization. Need for emergency major/minor surgery: No There are no social concerns with this patient. Prescription drug management Prescriptions will include symptomatic care Patient's prior external medical records from other ER visits were reviewed by me as indicated. Prior testing and results from previous visits were reviewed. Prior tests were taken into account with medical decision making and resource utilization, independent historian/historians were used to obtain complete medical history. I independently interpreted the test that were performed, results were reviewed by me and considered findings on radiology if ordered. Medical management and examination interpretation discussions were had by me with other qualified healthcare professionals as indicated for the patient's care. Procedure Wound Location: upper extremity (Right hand) Wound's Depth, Shape: superficial Wound Explored: clean Wound Debrided: minimal Wound Repaired With: Dermabond DX & DISP Disposition: Discharge Departure Condition: Stable Additional Instructions: Keep area clean with soap and water. Keep area dry. Did not feel off Dermabond it will fall off on its own. Please return if you have any signs of infection. Referrals: SANDRO WOODWARD (PCP) Time of Disposition: 20:10 I have reviewed the case, and I agree with, Diagnosis and Plan MATT WEISS NP Oct 15, 2024 19:57
--- NOTE | 2024-10-15 20:16 | NUR ---
PT NOT DISCHARGED DUE TO MULTIPLE MEDICATIONS PENDING
[2024-10-15 20:17] VITALS: BP 122/63; PULSE 70; RESP 16; TEMP 98.2; O2SAT 99
[2024-10-15] MEDS: ketOROlac 15MG/ML VIAL (15MG/ML) IM STA (20:25)
[2024-10-15] MEDS: teTANUS/diphthERIA TOXOID [ADULT] 0.5 ML VIAL IM ONE (20:31)
== END 2024-10-15 20:45 | disposition home or self-care (01) ==
LOC: EDH 16:09
DX: S61.411A Laceration without foreign body of right hand, initial encounter (principal); E03.9 Hypothyroidism, unspecified; F20.9 Schizophrenia, unspecified; K21.9 Gastro-esophageal reflux disease without esophagitis; J44.9 Chronic obstructive pulmonary disease, unspecified; Z79.1 Long term (current) use of non-steroidal anti-inflammatories (NSAID); Z79.899 Other long term (current) drug therapy; Z88.5 Allergy status to narcotic agent; W26.8XXA Contact with other sharp object(s), not elsewhere classified, initial encounter; Y93.89 Activity, other specified; Y92.89 Other specified places as the place of occurrence of the external cause; Y99.8 Other external cause status
CPT/HCPCS: 99284; 90714; 96372; 90471; 12002; J1885

== ENCOUNTER 2025-08-24 17:32 | Emergency (ER) | payer MEDICAID ==
[~2025-08-24] VITALS: Ht 152.4 cm; Wt 72.1 kg
--- NOTE | 2025-08-24 18:08 | EKG ---
[facility] Test Date: 2025-08-24 Test Time: 18:05:23 Pat Name: ILDA BRIGHT Department: [facility] Room: Gender: F Anvilsmith: [id number] : 1970 Requested By: CARLOS CLINE Order Number: [id number] Reading MD: Cori Miner Measurements Intervals Lyman Rate: 83 P: 69 UT: 149 QRS: 46 QRSD: 71 T: 38 QT: 354 QTc: 417 Interpretive Statements Sinus rhythm Compared to ECG 12/19/2023 11:28:34 No significant changes Electronically Signed On 08-24-2025 21:11:33 STONEWORKER by Cori Miner Please click the below link to view image of tracing.
[2025-08-24] MEDS: 0.9%NACL 1000ML 1,000 ML IV ONE (18:17)
[2025-08-24 18:22] LABS: IMMATURE GRANULOCYTE ABSOLUTE 0.05 K/uL (0-1); NUCLEATED RED BLOOD CELLS 0.0 % (0.0-0.19); PLATELET COUNT (AUTO) 176 K/uL (130-400); RED BLOOD CELL COUNT(AUTO) 4.24 MIL/uL (4.00-5.50); RED CELL DISTRIBUTION WIDTH 13.3 % (11.0-15.5); WHITE BLOOD COUNT (AUTO) 5.0 K/uL (4.8-10.8)
[2025-08-24 18:30] LABS: SARS-CoV-2, RNA, NAAT NEGATIVE SARS CoV-2 (NEGATIVE)
[2025-08-24 18:32] LABS: APPEARANCE,URINE CLEAR (CLEAR); GLUCOSE, URINE (UA) NEGATIVE (NEGATIVE); LEUKOCYTE ESTERASE ,URINE NEGATIVE Leu/uL (NEGATIVE); NITRATE,URINE NEGATIVE (NEGATIVE); OCCULT BLOOD,URINE NEGATIVE (NEGATIVE)
[2025-08-24 18:32] LABS: CREATININE 0.9 mg/dL (0.5-1.0); GLOMERULAR FILTR. RATE CALC 76.0 mL/min (>90); GLUCOSE,RANDOM 94.0 mg/dL (70-105); SODIUM SERUM 138.0 mmol/L (136-145); UREA NITROGEN, BLOOD 15.0 mg/dL (7-18)
[2025-08-24 18:35] LABS: RAPID GROUP A STREP positive (NEGATIVE)
[2025-08-24 18:37] LABS: ASPARTATE AMINOTRANSFERASE 18.0 U/L (10-37); CREATINE KINASE, TOTAL 66.0 U/L (21-232); TOTAL PROTEIN, SERUM 7.3 g/dL (6.0-8.3)
[2025-08-24 18:41] LABS: INFLUENZA TYPE A Negative For Type A (NEGATIVE); INFLUENZA TYPE B Negative For Type B (NEGATIVE)
[2025-08-24 18:41] LABS: ADD UA MICROSCOPIC NO
--- NOTE | 2025-08-24 19:33 | ERN ---
General Chief Complaint: Multiple Complaints Stated Complaint: CHEST PAIN,RT FLANK PAIN,WEAKNESS,NAUSEA,VOMITING Time Seen by MD: 17:35 Time Seen by Midlevel: 17:35 Source: patient History of Present Illness Initial Comments 55-year-old female presents to the emergency department with multiple complaints. She reports nausea, vomiting, generalized body weakness, coughing, and a sore throat. Allergies: Coded Allergies: morphine (Unverified Allergy, Severe, 04/01/23) No Known Drug Allergies (Verified Allergy, Unknown, 04/24/18) Home Meds Active Scripts Meloxicam (Meloxicam) 7.5 Mg Tablet, 7.5 MG PO DAILY, #30 TAB 2 Refills Prov:JUDI SCHNEIDER Sr., MD 01/05/24 Cyclobenzaprine HCl (Flexeril) 10 Mg Tab, 10 MG PO TIDP PRN for Muscle Spasm , #30 TAB 2 Refills Prov:JUDI SCHNEIDER Sr., MD 01/05/24 l Acidophil/B Lactis/B Longum (Florajen Digest 15 B Cell Cap) 15 Billion Cell Capsule, 1 EACH PO DAILY for 90 Days, #90 CAP 1 Refill Prov:MAGDI UNDERWOOD 12/19/23 Guaifenesin (Mucinex) 600 Mg Tablet.er, 600 MG PO BID PRN for CONGESTION for 7 Days, #14 TAB Prov:MAGDI UNDERWOOD 12/19/23 Benzonatate (Tessalon Perles) 100 Mg Cap, 100 MG PO TID for cough, #30 CAP 0 Refills Prov:MAGDI UNDERWOOD 12/19/23 Amoxicillin/Potassium Clav (Amox Tr-K Clv 875-125 mg Tab) 875 Mg-125 Mg Tablet, 1 EACH PO BID for 10 Days, #10 TAB 0 Refills Prov:MAGDI UNDERWOOD 12/19/23 Famotidine (Famotidine) 20 Mg Tablet, 20 MG PO BID for 7 Days, #1 TAB Prov:ALHAJI PICKENS 09/25/22 Albuterol Sulfate (Proair Digihaler) 90 Mcg Aer.pw.bas, 90 MCG IH Q4HPRN PRN for reactive airway, #1 INHALER Prov:HERIBERTO TOBAR MD 09/24/22 Hydroxyzine Pamoate (Vistaril) 25 Mg Capsule, 25 MG PO TID for anxiety, #30 CAP Prov:JOCELYNE PALOMINO MD 09/10/21 Reported Medications Ipratropium/Albuterol Sulfate (Iprat-Albut 0.5-3(2.5) mg/3 ml) 3 Ml Ampul.neb, 3 ML IH [id number] PRN for SHORTNESS OF BREATH/WHEEZING 04/30/18 Levothyroxine Sodium (Levothroid/Synthroid) 125 Mcg Tab, 137 MCG PO OADDF, TAB 04/25/18 Duloxetine HCl (Duloxetine HCl) 30 Mg Capsule.dr, 30 MG PO BID, CAP 04/25/18 Meclizine HCl (Meclizine HCl) 25 Mg Tablet, 25 MG PO TID PRN for NAUSEA, TAB 04/25/18 Esomeprazole Magnesium (Nexium) 40 Mg Capsule.dr, 40 MG PO DAILY, CAP 04/25/18 Hydroxyzine HCl (Hydroxyzine HCl) 25 Mg Tablet, 25 MG PO [id number] PRN for ANXIETY, TAB 04/25/18 Pregabalin (Lyrica) 100 Mg Capsule, 100 MG PO TID, CAP 04/25/18 Bupropion HCl (Bupropion HCl Sr) 150 Mg Tablet.er, 150 MG PO BID, TAB 04/25/18 Past Medical History Past Medical History: Asthma, Bipolar, COPD, GERD, Hypothyroid, Migraines, Schizophrenia Medical History Other: DJD, CHRONIC BACK PAIN, OSTEOPOROSIS Past Surgical History: None Surgical History Other: ABDOMINAL , SPINE Family History Family History: Negative Social History Social History: Negative ROS Dictation CONSTITUTIONAL: Negative except for HPI HEAD/FACE: Negative except for HPI EENT: Negative except for HPI RESPIRATORY: Negative except for HPI GASTROINTESTINAL/ABDOMINAL: Negative except for HPI GENITOURINARY: Negative except for HPI MUSCULOSKELETAL: Negative except for HPI INTEGUMENTARY: Negative except for HPI NEUROLOGICAL/PSYCH: Negative except for HPI HEMATOLOGIC/LYMPHATIC: Negative except for HPI All Systems Negative, Except as noted above. 13 point review of systems assessed and all negative except for above. Physical Exam Physical Exam Dictation Vital Signs reviewed General Appearance: Alert, oriented x 3, no acute distress, well developed, nourished. Head and Face: non-traumatic. Eyes: PERRL, pink conjunctivas, eyelid no trauma, anterior chamber with arcus senilis. Ears: Pinnas intact and no signs of trauma or erythema ear canals clear and no discharge TM no erythema Nose: No discharge, no bleeding. Oropharynx: Mouth normal, tongue pink, pharynx clear,no erythema, tonsils no exudates, no abscesses noted, mucous membrane moist Neck: Supple, non-tender, no thyromegaly, no masses, no JVD, no bruits Breast:Deferred Chest:No tenderness, no crepitus, no paradoxical movement, no retractions Lungs:Clear, well-ventilated, symmetric, no rales, no wheezing, no rhonchi, no stridor, good breath sounds bilaterally Heart: Regular rate, regular rhythm, no murmur, no gallops Vascular: no peripheral edema, Abdomen: Soft, positive bowel sounds, nondistended, no guarding, nontender, no rebound, no masses no hepatomegaly, no splenomegaly, no Jenkins's sign, no hernias. Rectal: Deferred Genital: Deferred Neurological: Normal speech, motor function intact, sensory function intact Musculoskeletal: Neck nontender, full range of motion, back nontender, full range of motion, Extremities: nontender, full range of motion Skin: Color pink, dry, no turgor, no rash, no lacerations, no abrasions, no contusions. Lymphatic: Deferred Results Laboratory and Microbiology Lab and Micro Result Laboratory Tests Test 08/24/25 18:00 08/24/25 18:08 08/24/25 18:10 Influenza Type A Antigen Negative For Type A Influenza Type B Antigen Negative For Type B SARS-CoV-2, RNA, NAAT NEGATIVE SARS CoV-2 Group A Streptococcus Rapid positive (NEGATIVE) *A White Blood Count 5.0 K/uL (4.8-10.8) Red Blood Count 4.24 MIL/uL (4.00-5.50) Hemoglobin 13.7 g/dL (12.0-16.0) Hematocrit 41.4 % (36-48) Mean Corpuscular Volume 97.6 fL (79-99) Mean Corpuscular Hemoglobin 32.3 pg (27.0-33.0) Mean Corpuscular Hemoglobin Concent 33.1 g/dL (32.0-36.0) Red Cell Distribution Width 13.3 % (11.0-15.5) Platelet Count 176 K/uL (130-400) Mean Platelet Volume 10.2 fL (7.5-10.5) Immature Granulocyte % (Auto) 1.0 % (0-1) Neutrophils (%) (Auto) 71.4 % (40.0-77.0) Lymphocytes (%) (Auto) 16.5 % (21.0-51.0) L Monocytes (%) (Auto) 9.5 % (3.0-13.0) Eosinophils (%) (Auto) 1.4 % (0.0-8.0) Basophils (%) (Auto) 0.2 % (0.0-5.0) Neutrophils # (Auto) 3.6 K/uL (1.8-7.7) Lymphocytes # (Auto) 0.8 K/uL (1.0-4.8) L Monocytes # (Auto) 0.5 K/uL (0.1-1.0) Eosinophils # (Auto) 0.07 K/uL (0.00-0.70) Basophils # (Auto) 0.01 K/uL (0.00-0.20) Absolute Immature Granulocyte (auto 0.05 K/uL (0-1) Nucleated Red Blood Cells 0.0 % (0.0-0.19) Sodium Level 138 mmol/L (136-145) Potassium Level 3.4 mmol/L (3.5-5.1) L Chloride Level 100 mmol/L (101-111) L Carbon Dioxide Level 30 mmol/L (21-32) Blood Urea Nitrogen 15 mg/dL (7-18) Creatinine 0.9 mg/dL (0.5-1.0) Glomerular Filtration Rate Calc 76 mL/min (>90) Random Glucose 94 mg/dL (70-105) Total Calcium 8.6 mg/dL (8.5-10.1) Magnesium Level 2.20 mg/dL (1.80-2.40) Total Bilirubin 0.5 mg/dL (0.2-1.0) Aspartate Amino Transf (AST/SGOT) 18 U/L (10-37) Alanine Aminotransferase (ALT/SGPT) 19 U/L (12-78) Alkaline Phosphatase 93 U/L (50-136) Total Creatine Kinase 66 U/L (21-232) Troponin I High Sensitivity 4 ng/L (4-50) Total Protein 7.3 g/dL (6.0-8.3) Albumin 3.3 g/dL (3.5-5.0) L Lipase 30 U/L (16-77) Urine Color YELLOW (YELLOW) Urine Appearance CLEAR (CLEAR) Urine pH 6.0 (5.0-8.0) Urine Specific [place] 1.025 (1.001-1.031) Urine Protein NEGATIVE mg/dL (NEGATIVE) Urine Glucose (UA) NEGATIVE mg/dL (NEGATIVE) Urine Ketones NEGATIVE mg/dL (NEGATIVE) Urine Occult Blood NEGATIVE (NEGATIVE) Urine Nitrate NEGATIVE (NEGATIVE) Urine Bilirubin NEGATIVE mg/dL (NEGATIVE) Urine Urobilinogen 2.0 mg/dL (0.2-1.0) H Urine Leukocyte Esterase NEGATIVE [place]/uL Labs Reviewed?: Yes MDM MDM: Differential diagnosis: Viral syndrome, pneumonia, upper respiratory infection, strep, dehydration There are no social concerns with this patient. Prescription drug management Prescriptions will include: Augmentin Medical management and examination interpretation discussions were had by me with other qualified healthcare professionals as indicated for the patient's care. ED Course Orders Procedure Category Date Status Time 12 Lead Ekg Tracing- EKG 08/24/25 Complete Technical 17:49 B-Type Natriuretic LAB 08/24/25 In Process Peptide 17:49 Cbc With Differential LAB 08/24/25 In Process 17:49 Comprehensive LAB 08/24/25 Complete Metabolic Panel 17:49 Creatine Kinase, Total LAB 08/24/25 Complete 17:49 Influenza Type A & B, LAB 08/24/25 Complete Rapid 17:49 Lipase LAB 08/24/25 Complete 17:49 Magnesium LAB 08/24/25 Complete 17:49 Rapid (Group A Strep) LAB 08/24/25 Complete 17:49 Covid Rna Naat LAB 08/24/25 Complete 17:49 Troponin I High LAB 08/24/25 Complete Sensitivity 17:49 Urinalysis Profile LAB 08/24/25 Complete 17:49 Chest 1vw RAD 08/24/25 Taken 17:49 0.9%Nacl 1000ml (Ns PHA 08/24/25 Complete 1000ml) 18:00 Acetaminophen 500mg PHA 08/24/25 Complete Tab (Tylenol 500mg T 18:00 Ceftriaxone 1g Vial PHA 08/24/25 Complete (Rocephine 1g Inj) 19:00 Ondansetron 4mg Inj PHA 08/24/25 Complete (Zofran 4mg Inj) 19:00 Current Medications Medications (Trade) Dose Ordered Sig/Katlin Route PRN Reason Start Time Stop Time Status Last Admin Dose Admin Acetaminophen (TYLenol 500MG TAB) 1,000 mg ONCE ONCE PO 08/24/25 18:00 08/24/25 18:01 DC 08/24/25 18:16 Ceftriaxone Sodium (ROCEphine 1G INJ) 1 gm ONCE ONCE IVPB 08/24/25 19:00 08/24/25 19:01 DC 08/24/25 19:20 Ondansetron HCl (zoFRAN 4MG INJ) 4 mg ONCE ONCE IVP 08/24/25 19:00 08/24/25 19:01 DC 08/24/25 19:20 Sodium Chloride 1,000 ml @ 0 mls/hr ONCE ONCE IV 08/24/25 18:00 08/24/25 18:01 DC 08/24/25 18:17 Vital Signs Date Time Temp Pulse Resp B/P (MAP) Pulse Ox O2 Delivery O2 Flow Rate FiO2 08/24/25 18:03 99.1 59 20 171/92 99 Room Air* 0 21 08/24/25 17:39 99.1 59 20 171/92 99 Room Air DX & DISP Disposition: Discharge Departure Impression: Primary Impression: Strep pharyngitis Condition: Stable Scripts Ketorolac Tromethamine (Ketorolac Tromethamine) 10 Mg Tablet 1 TAB PO BID for pain for 5 Days, #10 TAB 0 Refills Prov: CARLOS CLINE PAC 08/24/25 Amoxicillin/Potassium Clav (Amox Tr-K Clv 875-125 mg Tab) 875 Mg-125 Mg Tablet 1 EACH PO BID for 7 Days, #14 TAB 0 Refills Prov: CARLOS CLINE PAC 08/24/25 Referrals: SANDRO WOODWARD (PCP) I have reviewed the case, and I agree with, Diagnosis and Plan I performed the substantive portion of the visit. I have reviewed and personally made and approve the management plan that is documented in the note by myself or the VIOLETTE. I acknowledge for responsibility for the patient's management plan. CARLOS CLINE PAC Aug 24, 2025 19:33
[2025-08-24 20:18] VITALS: PULSE 69; RESP 20
[2025-08-24 20:55] VITALS: BP 162/88; PULSE 64; RESP 20; TEMP 99; O2SAT 99
--- NOTE | 2025-08-24 21:02 | HMCIMG ---
EXAM: CR Chest, 1 View. CLINICAL HISTORY: SOB. COMPARISON: None provided. FINDINGS: LUNGS: There is no mass, infiltrate, or acute pulmonary abnormality. PLEURAL SPACES: No evidence of pleural effusion or pneumothorax. MEDIASTINUM: The cardiomediastinal silhouette is within normal limits. BONES: No acute osseous abnormality. IMPRESSION: No acute cardiopulmonary pathology is evident. /[place]
== END 2025-08-24 20:57 | disposition home or self-care (01) ==
LOC: EDH 17:32
DX: J02.0 Streptococcal pharyngitis (principal); R11.2 Nausea with vomiting, unspecified; E03.9 Hypothyroidism, unspecified; F20.9 Schizophrenia, unspecified; F31.9 Bipolar disorder, unspecified; J44.89 Other specified chronic obstructive pulmonary disease; M81.0 Age-related osteoporosis without current pathological fracture; G89.29 Other chronic pain; M19.90 Unspecified osteoarthritis, unspecified site; G43.909 Migraine, unspecified, not intractable, without status migrainosus; K21.9 Gastro-esophageal reflux disease without esophagitis; Z20.822 Contact with and (suspected) exposure to COVID-19; Z88.5 Allergy status to narcotic agent; Z79.899 Other long term (current) drug therapy; Z79.1 Long term (current) use of non-steroidal anti-inflammatories (NSAID)
CPT/HCPCS: 99285; 96374; 71045; 87635; 96375; 82550; 83735; 84484; 80053; 83880; 83690; 85025; 87880; 87804 ×2; 81003; 36415; 93005; 94640; J7030; J0696; J2405

== ENCOUNTER 2025-09-01 16:24 | Emergency (ER) | payer MEDICAID ==
[~2025-09-01] VITALS: Ht 152.4 cm; Wt 72.1 kg
--- NOTE | 2025-09-01 16:43 | ERN ---
ED Note History of Present Illness Stated Complaint: LEG INJURY Chief Complaint: Lower Extremity Pain/Injury Time Seen by MD: 16:25 Time Seen by Midlevel: 16:26 Dictation: Ms. 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 She states I felt it hip my bone . She had immediate pain and states she could not stand so she called an ambulance. She states she feels that the foreign body remains in her leg. Allergies: Coded Allergies: morphine (Unverified Allergy, Severe, 04/01/23) No Known Drug Allergies (Verified Allergy, Unknown, 04/24/18) Home Meds Active Scripts Ketorolac Tromethamine (Ketorolac Tromethamine) 10 Mg Tablet, 1 TAB PO BID for pain for 5 Days, #10 TAB 0 Refills Prov:CARLOS CLINE 08/24/25 Amoxicillin/Potassium Clav (Amox Tr-K Clv 875-125 mg Tab) 875 Mg-125 Mg Tablet, 1 EACH PO BID for 7 Days, #14 TAB 0 Refills Prov:CARLOS CLINE 08/24/25 Meloxicam (Meloxicam) 7.5 Mg Tablet, 7.5 MG PO DAILY, #30 TAB 2 Refills Prov:JUDI SCHNEIDER Sr., MD 01/05/24 Cyclobenzaprine HCl (Flexeril) 10 Mg Tab, 10 MG PO TIDP PRN for Muscle Spasm , #30 TAB 2 Refills Prov:JUDI SCHNEIDER Sr., MD 01/05/24 l Acidophil/B Lactis/B Longum (Florajen Digest 15 B Cell Cap) 15 Billion Cell Capsule, 1 EACH PO DAILY for 90 Days, #90 CAP 1 Refill Prov:MAGDI UNDERWOOD 12/19/23 Guaifenesin (Mucinex) 600 Mg Tablet.er, 600 MG PO BID PRN for CONGESTION for 7 Days, #14 TAB Prov:MAGDI UNDERWOOD 12/19/23 Benzonatate (Tessalon Perles) 100 Mg Cap, 100 MG PO TID for cough, #30 CAP 0 Refills Prov:MAGDI UNDERWOOD. 12/19/23 Amoxicillin/Potassium Clav (Amox Tr-K Clv 875-125 mg Tab) 875 Mg-125 Mg Tablet, 1 EACH PO BID for 10 Days, #10 TAB 0 Refills Prov:MAGDI UNDERWOOD. 12/19/23 Famotidine (Famotidine) 20 Mg Tablet, 20 MG PO BID for 7 Days, #1 TAB Prov:ALHAJI PICKENS V PRODUCTION SUPERVISOR TRAINEE 09/25/22 Albuterol Sulfate (Proair Digihaler) 90 Mcg Aer.pw.bas, 90 MCG IH Q4HPRN PRN for reactive airway, #1 INHALER Prov:HERIBERTO TOBAR MD 09/24/22 Hydroxyzine Pamoate (Vistaril) 25 Mg Capsule, 25 MG PO TID for anxiety, #30 CAP Prov:JOCELYNE PALOMINO MD 09/10/21 Reported Medications Ipratropium/Albuterol Sulfate (Iprat-Albut 0.5-3(2.5) mg/3 ml) 3 Ml Ampul.neb, 3 ML IH [id number] PRN for SHORTNESS OF BREATH/WHEEZING 04/30/18 Levothyroxine Sodium (Levothroid/Synthroid) 125 Mcg Tab, 137 MCG PO OADDF, TAB 04/25/18 Duloxetine HCl (Duloxetine HCl) 30 Mg Capsule.dr, 30 MG PO BID, CAP 04/25/18 Meclizine HCl (Meclizine HCl) 25 Mg Tablet, 25 MG PO TID PRN for NAUSEA, TAB 04/25/18 Esomeprazole Magnesium (Nexium) 40 Mg Capsule.dr, 40 MG PO DAILY, CAP 04/25/18 Hydroxyzine HCl (Hydroxyzine HCl) 25 Mg Tablet, 25 MG PO [id number] PRN for ANXIETY, TAB 04/25/18 Pregabalin (Lyrica) 100 Mg Capsule, 100 MG PO TID, CAP 04/25/18 Bupropion HCl (Bupropion HCl Sr) 150 Mg Tablet.er, 150 MG PO BID, TAB 04/25/18 Past Medical History Past Medical History: Asthma, Bipolar, COPD, GERD, Hypothyroid, Migraines, Schizophrenia Additional Past Medical Hx: DJD, CHRONIC BACK PAIN, OSTEOPOROSIS Surgical History: None Surgical History Other: ABDOMINAL , SPINE Family History: Negative Social History: Negative RN Note Reviewed/Agreed w/PFSH: Yes Review of System Dictation REVIEW OF SYSTEMS: CONSTITUTIONAL: Patient denies fevers, chills, sweats and weight changes. EYES: Patient denies any visual symptoms. EARS, NOSE, AND THROAT: No difficulties with hearing. No symptoms of rhinitis or sore throat. CARDIOVASCULAR: Patient denies chest pains, palpitations, orthopnea and paroxysmal nocturnal dyspnea. RESPIRATORY: No dyspnea on exertion, no wheezing or cough. GI: No nausea, vomiting, diarrhea, constipation, abdominal pain, hematochezia or melena. : No urinary hesitancy or dribbling. No nocturia or urinary frequency. No abnormal urethral discharge. MUSCULOSKELETAL: Reports pain left lower leg. Reports pain with weight- bearing. NEUROLOGIC: No chronic headaches, no seizures. Patient denies numbness, tingling or weakness. PSYCHIATRIC: Patient denies problems with mood disturbance. No problems with anxiety. ENDOCRINE: No excessive urination or excessive thirst. DERMATOLOGIC: Patient denies any rashes or skin changes. Reports possible foreign body to left calf. Initial Vital Sign VS Vital Signs Date Time Temp Pulse Resp B/P (MAP) Pulse Ox O2 Delivery O2 Flow Rate FiO2 09/01/25 16:25 85 18 126/73 98 Room Air 0 09/01/25 16:51 97.7 21 Physical Exam Dictation Vital signs: Reviewed. Afebrile Constitutional: No acute distress. Non-toxic appearing. Head/Face: Normocephalic, atraumatic. Eyes: Periorbital areas with no swelling, redness, or edema. Lids and lashes are normal. Conjunctival injection is absent. Sclera anicteric. Pupils equal, round, reactive to light. ENT: Pinnas intact and no signs of trauma or erythema. Ear canals clear and no discharge. TMs no erythema. No nasal discharge or bleeding noted. Oropharynx with no exudate, redness, swelling, masses, exudates, or evidence of obstruction. Uvula midline. Mucous membranes moist. Neck: Trachea midline, no masses palpated, and no cervical lymphadenopathy. No swelling. Supple, full range of motion. Chest/Axilla: No tenderness, no crepitus, no paradoxical movement, no retractions. Cardiovascular: Regular rate, regular rhythm, no murmur, no gallops. Symmetric pulses. No peripheral edema. Respiratory: Respirations even and unlabored. Lung sounds clear; no wheezes, rales or rhonchi. Room air SpO2 97% Gastrointestinal: Inspection is normal. No distention is appreciated. Bowel sounds are normal. No mass or organomegaly . There is no tenderness. No rebound. No rigidity. No voluntary or involuntary guarding. No Jenkins's sign. Neurological: Normal speech, gross motor function intact, gross sensory function intact. No focal weakness/Paresthesia. Musculoskeletal/Extremities: All extremities have full range of motion. Tenderness upon palpation of the left calf. Symmetric pulses. She has good color, warmth, movement, and sensation to left toes. Capillary refill is brisk. Pedal pulses are palpable Integumentary: Skin is normal color, warm and dry. Cap refill less than 3 seconds. There was a very small puncture area that is tender to touch to the left posterior medial calf area. No foreign body is noted. There is no surrounding erythema or warmth. No drainage or bleeding. Results (Laboratory/Radiology) X-RAY Comment: PATIENT: ILDA HODGES MR#: [id number] : 1970 SEX: F AGE: 55 LOCATION: [facility] ORDER 42 STATUS: [facility] REPORT#: [id number] SERVICE 41 REASON: unable to bear weight ORDERING PHYSICIAN: BECCA SORTO PRODUCTION SUPERVISOR TRAINEE PROCEDURE: TIBFIB LT - TIBIA/FIBULA 2VWS LT EXAM: CR right Tibia and fibula, 2 View. CLINICAL HISTORY: unable to bear weight COMPARISON: None provided. FINDINGS: BONES: No acute fracture or aggressive appearing osseous lesion. JOINTS: No dislocation. The joint spaces are normal. SOFT TISSUES: The soft tissues are unremarkable. IMPRESSION: No acute osseous abnormality. /[place] DICTATED BY: BETTY HERNANDEZ MD DATE: 09/01/252047 ELECTRONICALLY SIGNED BY: BETTY HERNANDEZ MD DATE: 09/01/252047 ED Course ED Course Orders Procedure Category Date Status Time Ketorolac 60mg/2ml PHA 09/01/25 In Process (Toradol 60mg/2ml) 17:00 Apply Ice Pack To: CPOE 09/01/25 Transmitted (Er) 16:39 Us Soft Tissue Lower US 09/01/25 Taken Extremity 16:39 Tibia/Fibula 2vws Lt RAD 09/01/25 Resulted 16:42 Current Medications Medications (Trade) Dose Ordered Sig/[place] Route PRN Reason Start Time Stop Time Status Last Admin Dose Admin Ketorolac Tromethamine (toRADol 60MG/ 2ML) 30 mg ONCE IM 09/01/25 17:00 09/01/25 21:00 09/01/25 17:57 Vital Signs Date Time Temp Pulse Resp B/P (MAP) Pulse Ox O2 Delivery O2 Flow Rate FiO2 09/01/25 18:09 97.7 85 18 126/73 98 Room Air* 0 21 09/01/25 16:51 97.7 85 18 126/73 98 Room Air* 0 21 09/01/25 16:25 85 18 126/73 98 Room Air 0 X-ray of the left tib-fib negative for fracture. No foreign body visualized. An ultrasound was also performed as foreign body may be organic material. They noted a possible foreign body seen in the left posterior medial calf area measuring approximately 7.1 mm. She received doses Toradol and go for discomfort as well as initial dose of Keflex and tetanus update. She was discharged in stable condition with ultrasound evidence of possible retained for eign body. She was given oral antibiotics, pain control, and strict return precautions. Advised close PCP follow up for possible referral and further management. Medical Decision Making MDM MDM: Differential diagnosis: Foreign body left calf, fracture left tib/fib, soft tissue injury Rationale: Tests considered and ordered secondary to shared decision making include: X-ray, ultrasound Previous outside records reviewed: Old ER visits. Risk of complication and/or morbidity or mortality of patient management: None Medications-Per medication reconciliation Need for hospitalization: Patient does not meet criteria for hospitalization. Need for emergency major/minor surgery: No There are no social concerns with this patient. Prescription drug management: Toradol, cephalexin Prescriptions will include symptomatic care Patient's prior external medical records from other ER visits were reviewed by me as indicated. Prior testing and results from previous visits were reviewed. Prior tests were taken into account with medical decision making and resource utilization, independent historian/historians were used to obtain complete medical history. I independently interpreted the test that were performed, results were reviewed by me and considered findings on radiology if ordered. Medical management and examination interpretation discussions were had by me w ith other qualified healthcare professionals as indicated for the patient's care. DX & DISP Disposition: Discharge Departure Impression: Primary Impression: possible retained foreign body left calf Additional Impressions: Soft tissue injury of left lower leg, Negative x-ray for fraction Condition: Stable Scripts Ketorolac Tromethamine (Toradol) 10 Mg Tab 1 TAB PO Q6HPRN PRN for pain for 5 Days, #20 TAB 0 Refills Prov: NOREENBECCA Heidi [facility] 09/01/25 Cephalexin (Cephalexin) 500 Mg Tablet 1 TAB PO TID for 10 Days, #30 TAB 0 Refills Prov: NOREENBECCA Gordon [facility] 09/01/25 Additional Instructions: X-ray showed no broken bones. An ultrasound showed a POSSIBLE small foreign body less than 7 mm in the back/inner part of the calf. Because of its location and depth it was not safe to remove it in the emergency department. You will continue cephalexin 3 times a day for 10 days. Finish the entire course. You may take Toradol or [id number] Tylenol as directed for pain. Take with food. Keep the area clean and dry. You may gently wash with soap and water. Do not dig, squeeze, or probe the area. Apply a clean bandage if there is any drainage. Ice the area for pain and swelling 15-20 minutes at a time, several times daily for the next 1-2 days. Avoid heat for now. Walk as tolerated. Avoid strenuous activity or pressure on the area. Elevate the leg when resting or if swelling occurs. You must follow up with your primary care provider on Thursday. You may require referral to general surgery or Orthopedics for removal and/or repeat imaging. Return to the emergency department immediately if you have: Increased pain/swelling, redness spreading around the area, drainage/pus/foul odor, fever/chills, or worsening tenderness/warmth. A foreign body can cause infection if not monitor. Antibiotics help reduce infection risks but do not remove the object. Referrals: SANDRO WOODWARD (PCP) Time of Disposition: 20:28 BECCA SORTO [facility] Sep 01, 2025 16:43
[2025-09-01 18:09] VITALS: BP 126/73; PULSE 85; RESP 18; TEMP 97.7; O2SAT 98
--- NOTE | 2025-09-01 19:48 | HMCIMG ---
EXAM: CR right Tibia and fibula, 2 View. CLINICAL HISTORY: unable to bear weight COMPARISON: None provided. FINDINGS: BONES: No acute fracture or aggressive appearing osseous lesion. JOINTS: No dislocation. The joint spaces are normal. SOFT TISSUES: The soft tissues are unremarkable. IMPRESSION: No acute osseous abnormality. /[place]
[2025-09-01] MEDS: HYDROcodone/APAP 5/325 1 TAB TABLET PO ONE (20:47)
[2025-09-01] MEDS ORDERED: PHARMACY COMMUNICATION MISC SCH (21:00)
--- NOTE | 2025-09-02 | HMCIMG ---
EXAMINATION: SOFT TISSUE ULTRASOUND OF THE LEFT POSTERIOR MEDIAL CALF. CLINICAL HISTORY: Foreign body. COMPARISON: None. TECHNIQUE: Transverse and longitudinal images were obtained in the left posterior medial calf. FINDINGS: There is a 0.7 x 0.1 cm possible foreign body in the left posterior medial calf with posterior shadowing. IMPRESSION: Possible foreign body in the left posterior medial calf region. /[place]
== END 2025-09-01 20:52 | disposition home or self-care (01) ==
LOC: EDH 16:24
DX: S89.92XA Unspecified injury of left lower leg, initial encounter (principal); E03.9 Hypothyroidism, unspecified; F20.9 Schizophrenia, unspecified; F31.9 Bipolar disorder, unspecified; J44.9 Chronic obstructive pulmonary disease, unspecified; M19.90 Unspecified osteoarthritis, unspecified site; M81.0 Age-related osteoporosis without current pathological fracture; Z79.1 Long term (current) use of non-steroidal anti-inflammatories (NSAID); Z79.899 Other long term (current) drug therapy; Z88.5 Allergy status to narcotic agent; X58.XXXA Exposure to other specified factors, initial encounter; Y93.89 Activity, other specified; Y92.89 Other specified places as the place of occurrence of the external cause; Y99.8 Other external cause status
CPT/HCPCS: 99285; 90714; 73590; 76882; 96372; 90471; J1885